=== PATIENT | male | born 1975 | race Caucasian/White ===

== ENCOUNTER 2023-05-29 15:24 | Emergency (ER) | payer SELFPAY ==
[2023-05-29] MEDS ORDERED: EPINEPHrine 1:10,000 1 MG/10 ML Syringe ONE ×5 (15:27)
[2023-05-29] MEDS ORDERED: Amiodarone 150 MG/3 ML SDV ONE ×3 (15:27→17:50)
[2023-05-29] MEDS ORDERED: Lidocaine 2% 100 MG/5 ML Syringe ONE ×2 (15:27→17:50)
[2023-05-29] MEDS ORDERED: Sodium Bicarbonate 8.4% 50 MEQ/50 ML Syringe ONE ×2 (15:27→17:50)
[2023-05-29 15:40] LABS: HEMATOCRIT 46.2 % (40.0-52.0); HEMOGLOBIN 15.3 g/dL (14.0-18.0); MEAN CORPUSCULAR HEMOGLOBIN 31.6 pg (26.0-32.0); MEAN CORPUSCULAR HGB CONC 33.1 g/dL (32.0-36.0); MEAN CORPUSCULAR VOLUME 95.5 fL (78.0-93.0); PLATELET COUNT,PLT 131 x10^3/uL (130-400); RED BLOOD CELL COUNT 4.84 x10^6/uL (4.5-6.0); WHITE BLOOD CELL COUNT,WBC 13.1 x10^3/uL (4.0-10.0)
[2023-05-29] MEDS ORDERED: Sodium Chloride 0.9% 1,000 ML IV ONE (15:41)
[2023-05-29] MEDS ORDERED: Magnesium Sulfate/Water 50 ML IV ONE (15:45)
[2023-05-29] MEDS ORDERED: Magnesium Sulfate (4.06 MEQ/ML) 1 GM/2 ML SDV ONE ×2 (15:45→17:50)
[2023-05-29 15:56] LABS: BAND PERCENT MAN 1 % (0-6); EOSINOPHILS ABSOLUTE MAN 0.3 x10^3/uL (0.0-0.5); EOSINOPHILS PERCENT MAN 2 % (0-4); LYMPHOCYTES ABSOLUTE MAN 7.3 x10^3/uL (1.0-4.8); LYMPHOCYTES PERCENT MAN 51 % (25-50); MONOCYTES ABSOLUTE MAN 0.8 x10^3/uL (0.0-0.8); MONOCYTES PERCENT MAN 6 % (2-11); NEUTROPHILS ABSOLUTE MAN 4.7 x10^3/uL (1.8-7.7); SEG NEUTROPHILS PERCENT MAN 35 % (50-80)
[2023-05-29 15:56] LABS: HCO3 VENOUS,POC 16 mmol/L (22-29); O2 SATURATION VENOUS,POC 65 %; PCO2 VENOUS,POC 65 mmHg (41-51); PH VENOUS,POC 6.99 pH (7.32-7.43); PO2 VENOUS,POC 51 mmHg
[2023-05-29 16:00] LABS: A/G RATIO 1.04; ALANINE AMINOTRANSFERASE,ALT 258 U/L (16-63); ALBUMIN 2.9 g/dL (3.4-5.0); ALKALINE PHOSPHATASE 93 U/L (46-116); ANION GAP 24.2 mmol/L (5-15); ASPARTATE AMNIOTRANSFERASE,AST 187 U/L (15-37); BILIRUBIN TOTAL 0.4 mg/dL (0.2-1.0); BLOOD UREA NITROGEN,BUN 21 mg/dL (7-18); CALCIUM 8.1 mg/dL (8.5-10.1); CARBON DIOXIDE,CO2 20 mmol/L (21-32); CHLORIDE,CL 106 mmol/L (98-107); CREATININE 1.8 mg/dL (0.70-1.30); ESTIMATED GFR 46 mL/min (>=60); GLUCOSE RANDOM 246 mg/dL (70-99); POTASSIUM,K 3.2 mmol/L (3.5-5.1); PROTEIN TOTAL,TP 5.7 g/dL (6.4-8.2); SODIUM,NA 147 mmol/L (136-145)
[2023-05-29 16:18] LABS: INR 1.1 (0.9-1.1); PROTHROMBIN TIME 11.6 SEC (9.5-12.2); PTT,PARTIAL THROMBOPLSTIN TIME 30.6 SEC (23.6-33.6)
[2023-05-29 16:35] LABS: D-DIMER QUANTITATIVE 25.22 mg/LFEU (<=0.58)
[2023-05-29] MEDS ORDERED: Naloxone 0.4 MG/ML SDV ONE (17:50)
== END 2023-05-30 00:42 | disposition expired ==
LOC: VM.ED 15:24
DX: I46.9 Cardiac arrest, cause unspecified (principal)
CPT/HCPCS: 36415; 80053; 82803; 84484; 85025; 85379; 85610; 85730; 92950; 96374; 96375; 99291-25; J0171; J0282; J3475; J3490; J7030